=== PATIENT | female | born 1990 | race Caucasian/White ===

== ENCOUNTER 2022-11-23 12:47 | Emergency (ER) | payer SELFPAY ==
[~2022-11-23] VITALS: Ht 170.2 cm; Wt 113.4 kg
[2022-11-23 13:31] VITALS: BP 140/80
[2022-11-23 14:28] LABS: BILIRUBIN,URINE NEGATIVE (NEGATIVE); BLOOD, URINE 2+ (NEGATIVE); COLOR,URINE YELLOW (YELLOW); LEUKOCYTE ESTERASE ,URINE TRACE (NEGATIVE); NITRITE, URINE POSITIVE (NEGATIVE); UGLUCOSE NEGATIVE (NEGATIVE)
[2022-11-23] MEDS ORDERED: IBUP-2213 PO (14:44)
[2022-11-23 14:54] LABS: APPEARANCE,URINE HAZY (CLEAR)
[2022-11-23] MEDS ORDERED: CEPH-588 PO (15:04)
[2022-11-23 15:24] LABS: RBC,URINE 11-20 (MOD) /HPF (0-5)
--- NOTE | 2022-11-23 16:04 | NUR ---
PATIENT BIB POLICE DEPT. PATIENT EXAMINED BY DR. hill. PATIENT MEDICALLY CLEARED AND RELEASED IN CUSTODY IN STABLE CONDITION. ORIGINAL PRE-BOOK FORM GIVEN TO OFFICER .
[2022-11-23 16:15] VITALS: BP 132/74
== END 2022-11-23 16:04 | disposition home or self-care (01) ==
LOC: MED 12:47
DX: N39.0 Urinary tract infection, site not specified (principal); I10 Essential (primary) hypertension; R07.89 Other chest pain; R51.9 Headache, unspecified; Z79.899 Other long term (current) drug therapy
CPT/HCPCS: 70450; 71045; 81001; 87086; 93005; 99285